=== PATIENT | female | born 1970 | race Caucasian/White ===

== ENCOUNTER 2016-11-02 08:37 | Day surgery (SDC) | payer OTHER ==
[2016-10-25 17:11] VITALS: BMI 24.4
[2016-11-02] MEDS ORDERED: cefOXitin IV 1 gm in Dextrose 1 GM/50 ML BAG IVPB ONE (10:18)
[2016-11-02] MEDS ORDERED: Lactated Ringer's 1,000 ML IV ONE ×2 (10:20)
[2016-11-02] MEDS ORDERED: Propofol 10 mg/ml Inj (20 ML) ONE (10:24)
[2016-11-02] MEDS ORDERED: Midazolam 2 MG/2 ML VIAL ONE (10:24)
--- NOTE | 2016-11-02 11:00 | PCM.SURG1 ---
Surgeon's Initial Post Op Note - Surgeon's Notes Surgeon: dr roque Medical Legal Investigator: none Type of Anesthesia: General LMA Anesthesia Administered By: dr alvarez Pre-Operative Diagnosis: 46 yr with endometrial polyp Operative Findings: see the op report Post-Operative Diagnosis: same with polyp Operation Performed: myasure, d &c, hysterscopy Specimen/Specimens Removed: ecc. emc. polyp Estimated Blood Loss: EBL {In ML}: 200 Blood Products Given: N/A Drains Used: No Drains Post-Op Condition: Good Date of Surgery/Procedure: 11/02/16 Time of Surgery/Procedure: 11:00
--- NOTE | 2016-11-02 11:15 | OP ---
PROCEDURE DATE: 11/02/2016 PREOPERATIVE DIAGNOSIS: A 46-year-old 3, para 3 with endometrial polyp. POSTOPERATIVE DIAGNOSIS: A 46-year-old 3, para 3 with endometrial polyp. SURGEON: Edward Burrell MD ELECTRONICS MAINTENANCE TECHNICIAN SURGEON: None. ANESTHESIA: General anesthesia. ANESTHESIOLOGIST: Dr. Pacheco. PROCEDURE PERFORMED: MyoSure, dilation and curettage, hysteroscopy. COMPLICATIONS: None. ESTIMATED BLOOD LOSS: 20 mL. SPECIMEN: ECC, EMC, and polyp. PROCEDURE: After informed consent, the patient was brought to the operating room, placed on the tabl e where general anesthesia was given. When anesthesia was found ____, she was prepped and draped in normal fashion. Examination was performed, uterus to be 7-8 weeks size, no palpable adnexal masses. Then, the anterior lip of the cervix was grasped with a tenaculum. Gentle dilatation of the cervix was done. The hysteroscope was introduced, found the polyp on the posterior wall of the uterus 2 cm. Pictures were taken. Then, the decision was made to use the MyoSure. MyoSure was used ____. MyoS ure was used to get the polyp out. Polyp was removed. After that, MyoSure was removed and then the ECC was done and a sharp curettage of all the brown of the uterus was done. EMC was sent to the path ology. After that, the tenaculum was removed. The patient tolerated the procedure well. ____ were correct x 2. The deficit of fluid was 200 mL. The patient tolerated the procedure. The patient was sent home on the [facility], to follow up in the office in 2 weeks. Edward Burrell MD cc: [id number] TT: 11/02/2016 11:15:13 ms
[2016-11-02 13:37] VITALS: BP 119/70; PULSE 78; RESP 20; TEMP 98.2; O2SAT 100
== END 2016-11-02 13:35 | disposition home or self-care (01) ==
LOC: C.SDS 08:37
PROVIDERS: ATTEND Obstetrics & Gynecology
DX: N84.0 Polyp of corpus uteri (principal); N92.6 Irregular menstruation, unspecified
CPT/HCPCS: 58558; 88305; J0694; J1100; J1885; J2001; J2250; J2270; J2405; J2704; J3010; J7120

== ENCOUNTER 2018-03-29 09:36 | Day surgery (SDC) | payer OTHER ==
[2018-03-29 09:42] VITALS: BMI 23.8
[2018-03-29] MEDS ORDERED: Sodium Chloride 0.9% 1,000 ML IV ONE (09:54)
[2018-03-29] MEDS ORDERED: Sodium Chloride 0.9% 1,000 ML ONE (10:19)
[2018-03-29 10:24] LABS: BASO # 0.1 K/uL (0.0-0.2); BASO % 0.8 % (0.0-2.0); EOS # 0.4 K/uL (0.0-0.7); EOS % 5.4 % (0.0-4.0); HEMOGLOBIN 12.8 g/dL (11.0-16.0); LYMPH # 1.6 K/uL (1.0-4.3); LYMPH % 24.3 % (20.0-40.0); MEAN CELL VOLUME 74.2 fL (81.0-99.0); MEAN CORPUSCULAR HEMOGLOBIN 24.1 pg (27.0-31.0); MEAN CORPUSCULAR HGB CONC 32.5 g/dL (33.0-37.0); MEAN PLATELET VOLUME 8.5 fL (7.2-11.7); MONO # 0.5 K/uL (0.0-0.8); MONO % 6.9 % (0.0-10.0); NEUT # 4.2 K/uL (1.8-7.0); NEUT % 62.6 % (50.0-75.0); NRBC % 0.1 % (0.0-2.0); RBC 5.33 Mil/uL (3.80-5.20); RED CELL DISTRIBUTION WIDTH 13.9 % (11.5-14.5); WHITE BLOOD COUNT 6.6 K/uL (4.8-10.8)
[2018-03-29 10:29] LABS: INR 1.1; PROTHROMBIN TIME 11.8 SECONDS (9.7-12.2)
[2018-03-29 10:37] LABS: ALB/GLOB RATIO 1.2 (1.0-2.1); ALBUMIN 4.5 g/dL (3.5-5.0); ALT/SGPT 23 U/L (9-52); AST/SGOT 23 U/L (14-36); BLOOD UREA NITROGEN 9 mg/dL (7-17); CALCIUM 9.1 mg/dl (8.6-10.4); GFR NON-AFRICAN AMERICAN > 60
--- NOTE | 2018-03-29 10:38 | CP.PCM.HP ---
History of Present Illness - History of Present Illness History of Present Illness: HPI: Patient is a 47 y/o with PMHx of a thyroid nodule, HLD, and kidney stones presents for abnormal uterine bleeding which has failed medical therapy. Patient first had abnormal bleeding 3 months ago which was treated by her OBGYN. Then 19 days ago patient started to have bleeding again off an on, about 2 pads per day. Patient normally has a regular period. Patient was supposed to get her period on 03/13/18. Patient went to see her OBGYN, Dr. Ruiz yesterday who did and ultrasound which showed an enlarging cyst or polyp. Patient's bleeding was not stopping so she came to the ER. Patient has some mild lower abdominal pain which she rates 4/10. Patient admits to nausea but no vomiting. Patient denies any urinary symptoms or any other vaginal discharge. Patient denies any fevers or chills. Pt ws seen in ER last week but had to leave for personal famiy reason and erturns with continued bleedig. OBGYN: Dr. Ruiz Allergies: NKDA PMHx: thyroid nodule, HLD, and kidney stones Psur: cystoscopy 2016: cholecystectomy, 2012: thyroid surgery Meds: Potassium Citrate 5 mEq po BID, Fish oil daily OBhx: 1998: , baby girl, [place], full term, no complications 2000: , baby girl, [place], full term, no complications 2014: Intrauterine insemination, , [place] [facility] [place], no complications HALL MONITOR: 14, 28, 3; no fibroids, no STIs Famhx: Dad: of [place] at 62, Mom: alive, 80 y/o, liver cirrhosis, CAD Social: denies alcohol, tobacco, drugs, lives with family, works in security Present on Admission - Present on Admission Any Indicators Present on Admission: No Review of Systems - Constitutional Constitutional: As Per HPI - EENT Eyes: absent: As Per HPI, Blind Spots, Blurred Vision, Change in Vision, Decreased Night Vision, Diplopia, Discharge, Dry Eye, Exophthalmos, Floaters, Irritation, Itchy Eyes, Loss of Peripheral Vision, Pain, Photophobia, Requires Corrective Lenses, Sees Flashes, Spots in Vision, Tunnel Vision, Other Visual Disturbances, Loss of Vision, Other Nose/Mouth/Throat: absent: As Per HPI, Epistaxis, Nasal Congestion, Nasal Discharge, Nasal Obstruction, Nasal Trauma, Nose Pain, Post Nasal Drip, Sinus Pain, Sinus Pressure, Bleeding Gums, Change in Voice, Dental Pain, Dry Mouth, Dysphagia, Halitosis, Hoarsness, Lip Swelling, Mouth Lesions, Mouth Pain, Odynophagia, Sore Throat, Throat Swelling, Tongue Swelling, Facial Pain, Neck Pain, Neck Mass, Other - Cardiovascular Cardiovascular: As Per HPI - Respiratory Respiratory: As Per HPI - Reproductive: Female Reproductive:Female: As Per HPI - Menstruation Menstruation: As Per HPI - Musculoskeletal Musculoskeletal: absent: As Per HPI, Abnormal Gait, Arthralgias, Atrophy, Back Pain, Deformity, Joint Swelling, Limited Range of Motion, Loss of Height, Muscle Cramps, Muscle Weakness, Myalgias, Neck Pain, Numbness, Radiating Pain into Limb, Stiffness, Tingling, Other - Endocrine Endocrine: absent: As Per HPI, Change in Body Appearance, Change in Libido, Cold Intolorance, Deepening of Voice, Excessive Sweating, Fatigue, Flushing, Heat Intolorance, Increase in Ring/Shoe/Hat Size, Palpitations, Polydipsia, Polyphagia, Polyuria, Other - Hematologic/Lymphatic Hematologic: As Per HPI Past Patient History - Infectious Disease Hx of Infectious Diseases: None - Tetanus Immunizations Tetanus Immunization: Unknown - Past Medical History & Family History Past Medical History?: Yes - Past Social History Smoking Status: Never Smoked - CARDIAC Hx Cardiac Disorders: Yes Hx Hypercholesterolemia: Yes - PULMONARY Hx Respiratory Disorders: No - NEUROLOGICAL Hx Neurological Disorder: No - HEENT Hx HEENT Problems: No - RENAL Hx Chronic Kidney Disease: Yes Hx Kidney Stones: Yes - ENDOCRINE/METABOLIC Hx Hyperthyroidism: Yes - HEMATOLOGICAL/ONCOLOGICAL Hx Blood Disorders: No - INTEGUMENTARY Hx Dermatological Problems: No - MUSCULOSKELETAL/RHEUMATOLOGICAL Hx Musculoskeletal Disorders: No - GASTROINTESTINAL Hx Gastrointestinal Disorders: No - GENITOURINARY/GYNECOLOGICAL Hx Genitourinary Disorders: Yes Hx Reproductive Disorders: Yes Other/Comment: IRREGULAR MENSES - PSYCHIATRIC Hx Depression: No Hx Substance Use: No - SURGICAL HISTORY Hx Cholecystectomy: Yes - ANESTHESIA Hx Anesthesia: Yes Hx Anesthesia Reactions: Yes (VOMITING) Hx Malignant Hyperthermia: No Meds Allergies/Adverse Reactions: Allergies Allergy/AdvReac Type Severity Reaction Status Date / Time No Known Allergies Allergy Verified 03/29/18 09:41 Physical Exam - Constitutional Appears: Well, Non-toxic - Head Exam Head Exam: ATRAUMATIC, NORMAL INSPECTION - Eye Exam Eye Exam: EOMI - ENT Exam ENT Exam: Mucous Membranes Moist - Neck Exam Neck exam: Positive for: Normal Inspection - Respiratory Exam Respiratory Exam: Clear to Auscultation Bilateral, NORMAL BREATHING PATTERN - Cardiovascular Exam Cardiovascular Exam: REGULAR RHYTHM, +S1, +S2 - GI/Abdominal Exam GI & Abdominal Exam: Normal Bowel Sounds, Soft, Tenderness Additional comments: no guaridn ,gno reoubd tnender, no rigidtiy - Exam Additional comments: External genial: no gorss anbormal Vagina;' dark red blood cteri; no fransisco uteurs; enlarged, non tender adnexa; non tender peinum; grossly nroaml - Extremities Exam Extremities exam: Positive for: normal inspection. Negative for: calf tenderness, full ROM, joint swelling, normal capillary refill, pedal edema, tenderness, pedal pulses present - Back Exam Back exam: NORMAL INSPECTION. absent: CVA tenderness (L), CVA tenderness (R), FULL ROM, muscle spasm, paraspinal tenderness, rash noted, tenderness, vertebral tenderness Results - Vital Signs Recent Vital Signs: Last Vital Signs Temp 98.2 F 03/29/18 09:41 Pulse 78 03/29/18 09:41 Resp 18 03/29/18 09:41 BP 116/81 03/29/18 09:41 Pulse Ox 100 03/29/18 09:41 - Labs Result Diagrams: 03/29/18 10:18 03/29/18 10:18 Labs: Laboratory Results - last 24 hr 03/29/18 03/29/18 03/29/18 10:18 10:18 10:18 WBC 6.6 RBC 5.33 H Hgb 12.8 Hct 39.5 MCV 74.2 L MCH 24.1 L MCHC 32.5 L RDW 13.9 Plt Count 227 MPV 8.5 Neut % (Auto) 62.6 Lymph % (Auto) 24.3 Cassia % (Auto) 6.9 Eos % (Auto) 5.4 H Baso % (Auto) 0.8 Neut # (Auto) 4.2 Lymph # (Auto) 1.6 Cassia # (Auto) 0.5 Eos # (Auto) 0.4 Baso # (Auto) 0.1 PT 11.8 INR 1.1 Sodium 140 Potassium 4.1 Chloride 103 Carbon Dioxide 26 Anion Gap 16 BUN 9 Creatinine 0.6 L Est GFR ( Amer) > 60 Est GFR (Non-Af Amer) > 60 Random Glucose 93 Calcium 9.1 Total Bilirubin 0.5 AST 23 ALT 23 Alkaline Phosphatase 75 Total Protein 8.3 Albumin 4.5 Globulin 3.8 Albumin/Globulin Ratio 1.2 Assessment & Plan (1) Abnormal vaginal bleeding Assessment and Plan: 47 y/o with AUB failed medical therapy -pt adised on medical vs surigal therapy. bipoys reocmmend due to failure of meidlc treamt, age, and preivous US with submcuosal mass -r/b/a/i dw patient -DxC hysterscopy -npo, ivf -admissin labs Status: Acute (2) Endometrial polyp Status: Acute
[2018-03-29 10:46] LABS: HCG,QUALITATIVE URINE NEGATIVE (NEGATIVE)
[2018-03-29 10:55] LABS: SQUAMOUS EPITHIAL 13 /hpf (0-5); URINE BILIRUBIN NEGATIVE (NEGATIVE); URINE BLOOD 2+ (NEGATIVE); URINE CLARITY Hazy (Clear); URINE COLOR Yellow (YELLOW); URINE GLUCOSE (UA) NORMAL (Normal); URINE LEUKOCYTE ESTERASE NEG Leu/uL (Negative); URINE PROTEIN NEGATIVE (NEGATIVE); URINE UROBILINOGEN NORMAL mg/dL (0.2-1.0)
--- NOTE | 2018-03-29 11:28 | C.PDOC ---
History Of Present Illness 47 y/o female is sent to ED by OBGYN, Dr. Luis Padilla, for evaluation of vaginal bleeding for the last 12 days. Denies abdominal pain, n/v/d, or fever. Time Seen by Provider: 03/29/18 09:46 Chief Complaint (Nursing): Female Genitourinary History Per: Patient History/Exam Limitations: no limitations Past Medical History Reviewed: Historical Data, Nursing Documentation, Vital Signs Vital Signs: Last Vital Signs Temp 98.1 F 03/29/18 11:00 Pulse 76 03/29/18 11:00 Resp 16 03/29/18 11:00 BP 119/74 03/29/18 11:00 Pulse Ox 100 03/29/18 11:00 - Medical History PMH: Hypercholesterolemia, Hyperthyroidism, Kidney Stones, Chronic Kidney Disease Denies: Depression Surgical History: Cholecystectomy - [facility] Procedures INJECT/INFUSE NEC (03/29/13) Family History: States: Unknown Family Hx - Social History Hx Tobacco Use: No Hx Alcohol Use: No Hx Substance Use: No Review Of Systems Except As Marked, All Systems Reviewed And Found Negative. Constitutional: Negative for: Fever, Chills Gastrointestinal: Negative for: Nausea, Vomiting, Abdominal Pain, Diarrhea Genitourinary: Positive for: Vaginal Bleeding. Negative for: Dysuria Musculoskeletal: Negative for: Back Pain Physical Exam - Physical Exam Appears: Non-toxic, No Acute Distress Skin: Normal Color, Warm, Dry Head: Atraumatic, Normacephalic Eye(s): bilateral: Normal Inspection Oral Mucosa: Moist Neck: Normal ROM, Supple Cardiovascular: Rhythm Regular, No Murmur Respiratory: Normal Breath Sounds, No Rales, No Rhonchi, No Wheezing Gastrointestinal/Abdominal: Soft, No Tenderness, No Guarding, No Rebound Back: No CVA Tenderness Extremity: Normal ROM Neurological/Psych: Oriented x3, Normal Speech ED Course And Treatment - Laboratory Results Result Diagrams: 03/29/18 10:18 03/29/18 10:18 Lab Interpretation: Normal O2 Sat by Pulse Oximetry: 100 Pulse Ox Interpretation: Normal Progress Note: Treated with IVF NSS Reassessment Condition: Unchanged - Physician Consult Information Physician Contacted: Elyssa Padilla Outcome Of Conversation: admit to [facility] Medical Decision Making Medical Decision Making: Plan: Blood work Urinalysis Transvag ultrasound IV fluids Case discussed with Dr. Luis Padilla who agrees upon admission for same day surgery. Disposition Discussed With : Elyssa Padilla Doctor Will See Patient In The: Hospital - Disposition Disposition: HOSPITALIZED Disposition Time: 13:00 Condition: STABLE - POA Present On Arrival: None - Clinical Impression Clinical Impression: DUB (dysfunctional uterine bleeding) - PA / HIGH SCHOOL SCIENCE TUTOR / Resident Statement MD/DO has reviewed & agrees with the documentation as recorded. - Scribe Statement The provider has reviewed the documentation as recorded by the Scribe KP All medical record entries made by the Scribe were at my direction and personally dictated by me. I have reviewed the chart and agree that the record accurately reflects my personal performance of the history, physical exam, medical decision making, and the department course for this patient. I have also personally directed, reviewed, and agree with the discharge instructions and disposition.
[2018-03-29] MEDS ORDERED: Propofol 10 mg/ml Inj (20 ML) ONE (11:37)
[2018-03-29] MEDS ORDERED: Midazolam 2 MG/2 ML VIAL ONE (11:37)
[2018-03-29] MEDS ORDERED: ePHEDrine 50 mg/ml Inj ONE (11:53)
[2018-03-29] MEDS ORDERED: HYDROmorphone 0.5 mg/0.5 ml ISec IVP PRN (12:10)
[2018-03-29 13:37] VITALS: TEMP 97.6
[2018-03-29 15:14] VITALS: BP 114/75; PULSE 78; RESP 18
[2018-03-29 15:29] VITALS: O2SAT 100
--- NOTE | 2018-03-29 22:27 | OP ---
PROCEDURE DATE: 03/29/2018 INDICATIONS: The patient is a 47-year-old that had abnormal uterine bleeding that failed medical therapy. Ultrasound revealed a submucosal mass. Risks, benefits, alternatives, and indications of D and C and hysteroscopy were discussed with the patient. Consent was obtained. SURGEON: Elyssa Padilla MD SALES PROMOTION DIRECTOR: None. TYPE OF ANESTHESIA: General LMA. PREOPERATIVE DIAGNOSES: Abnormal uterine bleeding, submucosal mass. POSTOPERATIVE DIAGNOSES: Abnormal uterine bleeding, submucosal mass. OPERATION PERFORMED: Hysteroscopic myomectomy, dilation and curettage. ESTIMATED BLOOD LOSS: 20 mL. BLOOD PRODUCTS: None. COMPLICATIONS: None. SPECIMENS SENT TO PATHOLOGY: Endocervical curettings, endometrial curettings, and submucosal myoma. DESCRIPTION OF PROCEDURE: The patient was taken to the operating room where she was given general anesthesia. Once found to be adequate, she was placed on the operating table in dorsal supine position with legs supported using stirrups. The patient was then prepped and draped in the usual sterile fashion. A time-out confirmed correct patient and correct procedure. A red rubber catheter was then inserted into the urethra to drain the bladder, and 20 mL of clear yellow urine was obtained. A Luke retractor was placed in the anterior and posterior fornix of the vagina. The cervix was adequately visualized. A single-tooth tenaculum was placed on the anterior lip of the cervix. Endocervical curettings were obtained with a rajesh Sampson curette and sent to Pathology on [facility]. The uterus was then sounded to 8 cm. Following this, the cervix was sequentially dilated to allow for introduction of the hysteroscope under direct visualization using normal saline as the distention media. Following this, there was a mass noted that was carefully resected using MyoSure device. The MyoSure device was then removed. A gentle curettage was done. Specimen was sent to Pathology, labeled as endometrial curettings. The hysteroscope was then re-entered. There was good hemostasis noted. All instruments were removed. There was good hemostasis at the tenaculum puncture site. At the end of the procedure, all needle, sponge, and instrument counts were noted and correct x2. The patient tolerated the procedure well and was transferred to the recovery room in stable condition. Elyssa Padilla MD [facility] # [id number]
== END 2018-03-29 14:30 | disposition home or self-care (01) ==
LOC: C.ER 09:36 → C.SDS 10:48
PROVIDERS: ATTEND Obstetrics & Gynecology
DX: D25.9 Leiomyoma of uterus, unspecified (principal); N84.0 Polyp of corpus uteri; N93.9 Abnormal uterine and vaginal bleeding, unspecified; E78.5 Hyperlipidemia, unspecified; Z87.442 Personal history of urinary calculi
CPT/HCPCS: 58561; 80053; 81001; 84703; 85025; 85610; 86850; 86900; 87086; 88305; 96360; 99285; J1170; J1885; J2250; J2704; J3010; J7030; J7120